=== PATIENT | male | born 1950 | race Caucasian/White ===

== ENCOUNTER 2017-06-21 14:46 | Day surgery (SDC) | payer OTHER ==
[2017-06-21] VITALS (18 sets, daily range): BP systolic 104–189; BP diastolic 47–77
[~2017-06-21] VITALS: Ht 170.2 cm; Wt 72.1 kg
[~2017-06-21 14:46] MED LIST: ARFO15VI3 NEB; ASPI-1265 PO; ATOR40TA71 PO; CARV6.252 PO; CHOL400T14 PO; CLOP75TA33 PO; DOCUMENT DATE & TIME OF BETA-BLOCKER PO ONE; FOLI1TAB16 PO; GUAI-647 PO; HYDR-3972 PO; LACT1CAP65 PO; LIDOcaine 1% (10mg/ml) 2ml vial ONE; METO5SOL; SERT25TA PO; VALS80TA2 PO; VITA-293 PO; ceFAZolin 2gm in dextrose, iso 100 ML IV ONE; famotidine 20mg tablet PO ONE; famotidine/PF 10 mg/ml inj IV ONE; ringers solution, lacted 1,000 ML IV SCH
[2017-06-21] MEDS ORDERED: normal saline 1000ml 1,000 ML IV SCH (15:00)
[2017-06-21 15:11] LABS: ISTAT HGB 9.5 g/dl (14.0-18.0); ISTAT IONIZED CALCIUM 1.16 mmol/L (1.03-1.32); ISTAT K 5.3 mmol/L (3.5-5.1); POC BUN/CREATININE RATIO 16.6 (5.4-32.0)
[2017-06-21] MEDS ORDERED: sevoflurane 250ml liquid IH ONE (15:21)
[2017-06-21] MEDS ORDERED: fentaNYL/PF 50MCG/1 ML 2ML syringe ONE (15:31)
[2017-06-21] MEDS ORDERED: ondansetron/PF 4mg/2ml inj ONE (15:53)
[2017-06-21] MEDS ORDERED: phenylephrine 10mg/ml inj IV ONE (15:54)
[2017-06-21] MEDS ORDERED: normal saline 1000ml 1,000 ML IV ONE (16:13)
[2017-06-21] MEDS ORDERED: HYDROmorphone 1 mg/ml syringe IV PRN (16:15)
[2017-06-21] MEDS ORDERED: ondansetron/PF 4mg/2ml inj IV PRN (16:15)
[2017-06-21] MEDS ORDERED: meperidine/PF 25mg/ml syringe ONE (18:27)
[2017-06-21] MEDS ORDERED: meperidine/PF 25mg/ml syringe IV ONE (18:30)
== END 2017-06-21 18:35 ==
LOC: PAS 14:46
PROVIDERS: ATTEND Surgery
DX: R13.10 Dysphagia, unspecified (principal); R62.7 Adult failure to thrive; I25.10 Atherosclerotic heart disease of native coronary artery without angina pectoris; E11.40 Type 2 diabetes mellitus with diabetic neuropathy, unspecified; E78.00 Pure hypercholesterolemia, unspecified; K21.9 Gastro-esophageal reflux disease without esophagitis; I11.0 Hypertensive heart disease with heart failure; I50.9 Heart failure, unspecified; Z88.6 Allergy status to analgesic agent; Z95.1 Presence of aortocoronary bypass graft; Z79.899 Other long term (current) drug therapy; Z98.890 Other specified postprocedural states; Z95.5 Presence of coronary angioplasty implant and graft; Z86.74 Personal history of sudden cardiac arrest; Z79.82 Long term (current) use of aspirin
CPT/HCPCS: 43246; 80047; 82948; A6251; J0690; J2175; J2370; J2405; J3010; J3490; J7030; J7120